=== PATIENT | female | born 1985 | race Caucasian/White ===

== ENCOUNTER 2020-11-23 02:01 | Emergency (ER) | payer SELFPAY ==
[~2020-11-23] VITALS: Ht 154.9 cm; Wt 68.0 kg
[2020-11-23 02:02] VITALS: BP 111/54
--- NOTE | 2020-11-23 02:12 | NUR ---
ERMD EVALUATING PATIENT AT [facility].
--- NOTE | 2020-11-23 02:20 | NUR ---
PATIENT BIB [facility]. PATIENT EXAMINED BY DR. FISCHER. PATIENT MEDICALLY CLEARED AND RELEASED IN CUSTODY IN STABLE CONDITION. ORIGINAL PRE-BOOK FORM GIVEN TO OFFICER [facility] #[id number]. NO NURSING INTERVENTIONS NEEDED.
== END 2020-11-23 02:20 ==
LOC: MED 02:01
DX: F10.129 Alcohol abuse with intoxication, unspecified (principal); Z02.89 Encounter for other administrative examinations; V98.8XXA Other specified transport accidents, initial encounter; Y93.89 Activity, other specified; Y92.89 Other specified places as the place of occurrence of the external cause; Y99.8 Other external cause status; Y90.9 Presence of alcohol in blood, level not specified
CPT/HCPCS: 99283